=== PATIENT | male | born 1980 | race Caucasian/White ===

== ENCOUNTER 2020-12-09 15:26 | Emergency (ER) | payer MEDICAID, SELFPAY | END 2020-12-09 18:17 | disposition left against medical advice (07) | PROVIDERS: Emergency Provider Emergency Medicine | DX: N20.0 Calculus of kidney (principal) ==

== ENCOUNTER 2020-12-15 15:47 | Emergency (ER) | payer OTHER, MEDICAID, SELFPAY ==
--- NOTE | ~2020-12-15 | CT_ITS ---
EXAMINATION: CT LUMBAR SPINE WITHOUT CONTRAST CLINICAL INFORMATION: [facility] COMPARISON: Lumbar spine x-ray September 2016 TECHNIQUE: Axial images through the lumbar spine without contrast. Sagittal and coronal reconstructions on the technologist workstation were performed. This CT examination was performed using dose optimization techniques as appropriate, variously including the following: *Automated exposure control *Adjustment of mA and/or kV according to patient size (this includes techniques or standardized protocols for targeted exams where dose is matched to indication/reason for exam; i.e. extremities or head) *Use of iterative reconstruction technique DLP; 416 mGy-cm FINDINGS: The L1 vertebral body is not completely included in the [id number]. L1 vertebral body appears normal on topogram images. Bone alignment is normal. No fracture or dislocation is seen. There is degenerative disc disease at L4-L5 and L5-S1. The sacroiliac joints are normal-appearing. At L1-L2 there is no disc herniation protrusion or bulge. At L2-L3 there is no disc herniation/bulge. At L3-L4 there is mild diffuse disc bulge. No disc herniation is seen. Spinal canal, lateral recesses and neural foramen are patent. At L4-L5 there is right paracentral disc bulge. There is mild secondary spinal stenosis due to disc and short pedicles. At L5-S1 there is diffuse disc bulge. There is mild secondary spinal stenosis due to disc and, short pedicles and facet arthritis. There are bilateral renal stones. Paraspinal soft tissues are otherwise unremarkable. CT/CT lumbar spine wo con IMPRESSION: The L1 vertebral body is not completely included in the [id number]. No fracture or dislocation is seen. Mild disc bulge at L3-L4. Degenerative disease with disc bulge and mild secondary spinal stenosis at L4-L5 and L5-S1. Bilateral renal stones.
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
[2020-12-15 15:56] VITALS: BP 154/70; PULSE 96; RESP 18; TEMP 36.6; O2SAT 98; BMI 25.1
[2020-12-15] MEDS: Acetaminophen 325 MG TABLET 975 MG PO (16:50)
[2020-12-15] MEDS: HYDROcodone Bit/Acetam 5/325 TABLET 1 TAB PO (17:20)
== END 2020-12-15 17:25 | disposition home or self-care (01) ==
PROVIDERS: Emergency Provider Emergency Medicine
DX: S13.4XXA Sprain of ligaments of cervical spine, initial encounter (principal); S39.012A Strain of muscle, fascia and tendon of lower back, initial encounter; V89.2XXA Person injured in unspecified motor-vehicle accident, traffic, initial encounter; Y93.9 Activity, unspecified; Y92.410 Unspecified street and highway as the place of occurrence of the external cause; Y99.9 Unspecified external cause status
CPT/HCPCS: 70450; 72125; 72131; 99283; 99284

== ENCOUNTER 2024-07-17 14:29 | Outpatient (REF) | payer MEDICAID, SELFPAY ==
--- NOTE | ~2024-07-17 | XR_ITS ---
EXAMINATION: XR CHEST CLINICAL INFORMATION: cough, fever, neg covid and flu COMPARISON: July 31, 2015 TECHNIQUE: 2 views of the chest were obtained. FINDINGS: No consolidation pleural effusion or pneumothorax. No hyperinflation. Cardiomediastinal silhouette size is normal. Osseous structures are intact. XR/XR chest 2V IMPRESSION: No acute airspace disease. Electronically signed by: Rob Jo MD 07/17/2024 03:17 PM MARCELL
== END 2024-07-17 14:30 | disposition home or self-care (01) ==
LOC: HO.HHCX 14:29
PROVIDERS: Visit Provider Nurse Practitioner Family
DX: R50.9 Fever, unspecified (principal)
CPT/HCPCS: 71046

== ENCOUNTER → 2024-07-17 14:30 | Outpatient (BNV) | payer MEDICAID, SELFPAY | PROVIDERS: Visit Provider Radiology Diagnostic Radiology | DX: R05.9 Cough, unspecified (principal); R50.9 Fever, unspecified | CPT/HCPCS: 71046 ==

== ENCOUNTER 2024-07-24 16:33 | Outpatient (REF) | payer MEDICAID, SELFPAY ==
[2024-07-24 18:22] LABS: CT PCR NOT DETECTED (Not Detect.); NG PCR NOT DETECTED (Not Detect.)
--- OUTSIDE RECORDS SUMMARY | 2024-07-24 19:48 | XMS_ITS | Encounter Summary ---
Author Organization [employer] Address [address] [facility] [address]t [place] [address] Care Team Providers Care Specialty Development Consultant Name Role Phone Cindi Chiu NP Primary Care Provider [phone] Encounter Details Date Type Department Care Team (Late st Contact Info) Description 07/24/2024 Telephone [facility] MEDICINE [address] [place] [address] Cindi Chiu NP [address] [place] [address] Social History Tobacco Use Types Packs/Day Years Used Date Smoking Tobacco: Every Day Cigarettes Passive Smoke Exposure: Current Smokeless Tobacco: Current Sex and Gender Information Value Date Recorded Sex Assigned at Male 03/29/2022 10:15 AM EDT Legal Sex Male 10:15 AM EDT Gender Identity Male 03/29/2022 10:15 AM EDT Sexual Orientation Straight 03/29/2022 10 :15 AM EDT documented as of this encounter Miscellaneous Notes * Telephone Encounter - Gema Raza RN - 07/24/2024 2:14 PM EST T/C to pt to schedule televisit BP check next week. Female answered who agrees to ask pt to call [facility] to schedule. * Telephone Encounter - Gema Raza RN - 07/24/2024 2:13 PM EST ----- Message from Shan Quiroz MD sent at 07/24/2024 1:56 PM EST ----- Please call the patient for BP check next week documented in this encounter Plan of Treatment Not on file documented as of this encounter Visit Diagnoses Not on filedocumented in this encounter Care Teams Specialty Development Consultant Relationship Specialty Start Date End Date Cindi Chiu NP [address] [place] [id number] PCP - General Family Medicine 07/20/24 documented as of this encounter
--- OUTSIDE RECORDS SUMMARY | 2024-07-24 19:48 | XMS_ITS | Encounter Summary ---
Author Organization [employer] Address [address] [facility] [address] [place] [address] Care Team Providers Care Caustics Loader Name Role Phone Cindi Chiu ANSWERER Primary Care Provider [phone] Reason for Visit * Reason Onset Date Comments Medication Problem 07/23/2024 Encounter Details Date Type Department Care Team (Late st Contact Info) Description 07/23/2024 Telephone [facility] WALK-IN CENTER [address] [place] [address] Angie Bruno RN Medication Problem Social History Tobacco Use Types Packs/Day Years Used Date Smoking Tobacco: Never Assessed Sex and Gender Information Value Date Recorded Sex Assigned at Male 03/29/2022 10:15 AM EDT Legal Sex Male 10:15 AM EDT Gender Identity Male 03/29/2022 10:15 AM EDT Sexual Orientation Straight 03/29/2022 10 :15 AM EDT documented as of this encounter Miscellaneous Notes * Telephone Encounter - Angie Bruno RN - 07/23/2024 8:08 PM EST TC to pt at @[phone] for status check regarding Abtx Rx and report of N/V. Outgoing messageis : VM is not set up. Unable to leave message at this time. 07/23/24 4:42 PM Tomás Puente: Please review and advise, Thanks, TRI Adams RN to Cindi Chiu NP 07/20/24 3:54 PM Tomás Puente, you saw this patient in the walk on 07/17. He was prescribed Augmentin for left otitis media. He is on day 4 of 7. He just called reporting he is having nausea/ vomiting since beginning Abx.I did let him know that it can cause GI effects, but he is requesting a different antibiotic. TY! documented in this encounter Plan of Treatment Not on file documented as of this encounter Visit Diagnoses Not on filedocumented in this encounter Care Teams Caustics Loader Relationship Specialty Start Date End Date Cindi Chiu NP [address] [place] [id number] PCP - General Family Medicine 07/20/24 documented as of this encounter
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
--- OUTSIDE RECORDS SUMMARY | 2024-07-24 19:48 | XMS_ITS | Encounter Summary ---
Author Organization [employer] Address [address] [facility] 7t [place] [address] Care Team Providers Care Builder Operator Name Role Phone Cindi Chiu NP Primary Care Provider [phone] Reason for Visit * Reason Onset Date Comments Medication Question 07/20/2024 Encounter Details Date Type Department Care Team (Late st Contact Info) Description 07/20/2024 Telephone [facility] MEDICINE [address] [place] [address] Cindi Chiu NP [address] [place] [address] Medication Question Social History Tobacco Use Types Packs/Day Years Used Date Smoking Tobacco: Never Assessed Sex and Gender Information Value Date Recorded Sex Assigned at Male 03/29/2022 10:15 AM EDT Legal Sex Male 10:15 AM EDT Gender Identity Male 03/29/2022 10:15 AM EDT Sexual Orientation Straight 03/29/2022 10 :15 AM EDT documented as of this encounter Miscellaneous Notes * Telephone Encounter - Gladys Parker RN - 07/24/2024 1:41 PM EST TC x 2 placed to pt to see how he is doing. Pt reports he was able to finish the antibiotics. Pt states he was vomiting, but was able to finish antibiotics. Pt states he is feeling much better. Pt denies any pain in his ear and reports feeling better. Pt denies questions or concerns at this time. Message forwarded to PCP as an FYI. * Telephone Encounter - Yudy Patterson RN - 07/20/2024 3:48 PM EST Call returned to patient. Arslan reports that since taking Augmentin he has had nausea/ vomiting and abdominal discomfort. He is on day 4 of 7 day course. He is wondering if there is an alternative medication he can take. Advised patient this RN will send to ordering provider for review. Will return call to patient. Patient verbalizes understanding and agreement with plan of care at this time. * Telephone Encounter - Xander Ramirez - 07/20/2024 3:39 PM EST TC from pt stating that the med amoxicillin-clavulanate (Augmentin) 875-125 MG tablet Is too strongfor him and that it was making him throw up. Pt would like to see if its possible for him to get a Alternate medication. Contact pt at [phone] documented in this encounter Plan of Treatment Not on file documented as of this encounter Visit Diagnoses Not on filedocumented in this encounter Care Teams Builder Operator Relationship Specialty Start Date End Date Cindi Chiu NP [address] [place] [id number] PCP - General Family Medicine 07/20/24 documented as of this encounter
--- OUTSIDE RECORDS SUMMARY | 2024-07-24 19:48 | XMS_ITS | Encounter Summary ---
Author Organization [employer] Address [address] [facility] 7t [place] [address] Care Team Providers Care Greenhouse Specialist Name Role Phone Unavailable Primary Care Provider Unavailabl e Encounter Details Date Type Department Care Team (Late st Contact Info) Description 07/18/2024 Telephone [facility] WALK-IN CENTER [address] [place] [address] Cindi Chiu NP [address] [place] [address] Social History Tobacco Use Types Packs/Day Years Used Date Smoking Tobacco: Never Assessed Sex and Gender Information Value Date Recorded Sex Assigned at Male 03/29/2022 10:15 AM EDT Legal Sex Male 10:15 AM EDT Gender Identity Male 03/29/2022 10:15 AM EDT Sexual Orientation Straight 03/29/2022 10 :15 AM EDT documented as of this encounter Miscellaneous Notes * Telephone Encounter - Jerilyn Sepulveda RN - 07/18/2024 11:09 AM EST TC placed to pt regarding message below per Cindi Chiu DIRECTOR OF PARTNERSHIPS. Pt verbalized understanding. No questions expressed at time of call. Pt to F/U as needed. ----- Message from Cindi Chiu sent at 07/18/2024 10:52 AM EST ----- Pls let pt know chest x-ray negative for peumonia but to continue abx as prescribed for ear infection thank you documented in this encounter Plan of Treatment Not on file documented as of this encounter Visit Diagnoses Not on filedocumented in this encounter
--- OUTSIDE RECORDS SUMMARY | 2024-07-24 19:49 | XMS_ITS | Clinical Summary ---
Author Organization [employer] Address [address] [facility] [address] [place] [address] Care Team Providers Care Organ Tuner Electronic Name Role Phone Cindi Chiu BARBARA Primary Care Provider [phone] Allergies No known active allergies Medications albuterol 108 (90 Base) MCG/ACT inhalerIndication s:Moderate persistent asthma with acute exacerbation Inhale 2 puffs every 6 (six) hours if needed for wheezing. 18 g 11 07/17/2024 08/17/19 25 Active amoxicillin-clavu lanate (Augmentin) 875-125 MG tablet Take 1 tablet by mouth 2 times daily for 7 days. 14 tablet 07/17/2024 07/24/19 25 Active amLODIPine (Norvasc) 2.5 MG tablet Take 1 tablet (2.5 mg) by mouth Once per day. 30 tablet 11 07/24/2024 07/24/19 26 Active Blood Pressure kitIndications:Hy pertension, unspecified type Use once a day 1 kit 07/24/2024 Active Active Problems Problem Noted Date Diagnosed Date Hypertension 07/24/2024 Viral URI 07/17/2024 Assessment & Plan (07/17/2024 6:58 PM EST): Poct test neg for influenza, covid , strep Asthma flare, will image as pt does have fever and endorses sob Though respiratory exam reassuring to auscultation Fever 07/17/2024 Moderate persistent asthma with acute exacerbati on 07/17/2024 Assessment & Plan (07/17/2024 6:59 PM EST): Encouraged abstaining from tobacco Albuterol inhaler prescribed No audible wheeze Acute otitis media 07/17/2024 Assessment & Plan (07/17/2024 6:57 PM EST): Left ear, augmentin prescribed Note for work given until afebrile for 24 hours Continue abx until completion even if you feel better Encounters Date Type Department Care Team Description 07/24/2024 1:40 PM EST Office Visit [facility] [address] [place] [phone] Gabriella, MD Shan Penile rash (Primary Dx); Hypertension, unspecified type 07/24/2024 Telephone [facility] [address] [place] [phone] Cindi Chiu NP 07/24/[address] [address] Cindi Chiu NP Nurse Triage 07/23/2024 Telephone [facility] [address] [phone] Angie Bruno RN Medication Problem 07/20/[address] [address] Cindi Chiu NP Medication Question 07/18/2024 Telephone [facility] [address] [address] Cindi Chiu NP 07/17/2024 2:40 PM EST Office Visit [facility] [address] [address] Cindi Chiu NP Fever, unspecified fever cause (Primary Dx); Viral URI; Moderate persistent asthma with acute exacerbation; Acute suppurative otitis media of left ear without spontaneous rupture of tympanic membrane, recurrence not specified from Last 3 Months Social History Tobacco Use Types Packs/Day Years Used Date Smoking Tobacco: Every Day Cigarettes Passive Smoke Exposure: Current Smokeless Tobacco: Current Tobacco Cessation:Ready to Q uit: Not Asked; Counseling Given: Not Answered Sex and Gender Information Value Date Recorded Sex Assigned at Male 03/29/2022 10:15 AM EDT Legal Sex Male 10:15 AM EDT Gender Identity Male 03/29/2022 10:15 AM EDT Sexual Orientation Straight 03/29/2022 10 :15 AM EDT Last Filed Vital Signs Vital Sign Reading Time Taken Comments Blood Pressure 156/105 07/24/2024 1:59 PM EST Pulse 96 07/24/2024 1:31 PM EST Temperature 36.2 ??C (97.1 ??F) 07/24/2024 1:31 PM ES T Respiratory Rate 20 07/24/2024 1:31 PM EST Oxygen Saturation 98% 07/24/2024 1:31 PM EST Inhaled Oxygen Concentration - - Weight 77.7 kg (171 lb 4 oz) 07/24/2024 1:31 PM EST Height 170.2 cm (5' 7 ) 07/24/2024 1:31 PM EST Body Mass Index 26.82 07/24/2024 1:31 PM EST Plan of Treatment Health Maintenance Due Date Last Done Comments Depression Screening 1980 HIV Screening 1981 Lipid Panel 1981 SDOH Screening 1981 Alcohol/Substance Use Screening 1993 Family Planning (PISQ) 1996 Hepatitis C Screening 1999 DTaP/Tdap/Td Vaccines (1 - Tdap) 2000 Hepatitis B Vaccines (1 of 3 - 19+ 3-dose series) 2000 Pneumococcal Vaccine: Pediatrics (0 to 5 Years) and At-Risk Patients (6 to 49) Years) (1 of 2 - PCV) 2000 COVID-19 Vaccine ( - 2023-2 5 season) 2024 12/31/2021, 11/19/2020, 10/22/2020 Influenza Vaccine (#1) 2024 Tobacco Screening 07/24/2025 07/24/2024 Zoster Vaccines (1 of 2) 2031 RSV Patients and Patients Aged 60 years or older (1 - 1-dose 75+ series) 2056 HIB Vaccines Aged Out No longer eligi ble based on patient's age to complete this topic HPV Vaccines Aged Out No longer eligi ble based on patient's age to complete this topic Hepatitis A Vaccines Aged Out No long er eligible based on patient's age to complete this topic IPV Vaccines Aged Out No longer eligi ble based on patient's age to complete this topic Meningococcal Vaccine Aged Out No sonia jesus eligible based on patient's age to complete this topic RSV under 20 months Aged Out No longe r eligible based on patient's age to complete this topic Rotavirus Vaccines Aged Out No longer eligible based on patient's age to complete this topic Procedures Procedure Name Priority Date/Time Associated Diagnosis Comments CHLAMYDIA/N. GONORRHOEAE RNA, TMA, UROGENITAL Routine 07/24/2024 2:00 PM EST Penile rash XR CHEST 2 VIEWS Routine 07/17/2024 2:30 PM EST Fever, unspecified fever cause POCT INFLUENZA B (ID NOW RAPID MOLECULAR) Routine 07/17/2024 2:00 PM EST Viral URI POCT INFLUENZA A (ID NOW RAPID MOLECULAR) Routine 07/17/2024 2:00 PM EST Viral URI POCT RAPID STREP A Routine 07/17/2024 2: 00 PM EST Viral URI POCT RAPID COVID ANTIGEN Routine 07/17/2024 2:00 PM EST Viral URI from Last 3 Months Results * Chlamydia/N. Gonorrhoeae RNA, TMA, Urogenitial (07/24/2024 2:00 PM EST) Pathologist [facility] CT PCR NOT DETECTED Not Detect. [facility] Comment:A not detected test result does not exclude the possibilityof infection because test results can be affected byimproper specimen collection, concurrent antibiotic therapy,or the number of organisms in the specimen which may bebelow the sensitivity of the test. As with many diagnostictests, results from the Xpert CT/NG assay should beinterpreted in conjunction with other laboratory andclinical data available to the clinician.Xpert CT/NG performance has not been evaluated in patientsless than 14 years of age. The assay should not be used forthe evaluationof suspected sexual abuse or for other medico-legalindications. Additional testing is recommended in anycircumstance when false positive or false negative resultscould lead to adverse medical, social or psychologicalconsequences. NG PCR NOT DETECTED Not Detect. [facility] Comment:A not detected test result does not exclude the possibilityof infection because test results can be affected byimproper specimen collection, concurrent antibiotic therapy,or the number of organisms in the specimen which may bebelow the sensitivity of the test. As with many diagnostictests, results from the Xpert CT/NG assay should beinterpreted in conjunction with other laboratory andclinical data available to the clinician.Xpert CT/NG performance has not been evaluated in patientsless than 14 years of age. The assay should not be used forthe evaluationof suspected sexual abuse or for other medico-legalindications. Additional testing is recommended in anycircumstance when false positive or false negative resultscould lead to adverse medical, social or psychologicalconsequences. Swab (Vaginal Swab) 07/24/2024 2:00 PM EST 07/24/2024 4:33 PM EST Narrative [facility] - 07/24/2024 6:22 PM EST Urine us Shan Name MD LAB MICROBIOLOGY - GENERAL ORDER NILDA Final Result Performing Organization Address City/State/[facility] Co de Phone Number [facility] [address] [place] [phone] [phone] * XR Chest 2 Views (07/17/2024 2:30 PM EST) Anatomical Region Laterality Modality Chest Radiographic Mildred ging 07/17/2024 2:30 PM EST Narrative 07/17/2024 3:20 PM EST ?[facility] ?[address] ?[place] [address] ?XRay Report ? Signed ? Patient: James,Arslan ?MR#: [id number] ?? 77 ? : 1980 ?Acct:[id number] ? Age/Sex: 44 / M ?ADM Date: 02/18/25 ? Loc: HO.HHCX ? Attending Dr: Cindi Chiu TUG MASTER ? Ordering Physician: Cindi Chiu TUG MASTER ?? Date of Service: 07/17/24 ?? Procedure(s): XR chest 2V ?? Accession Number(s): [id number] ? cc: Cindi Chiu TUG MASTER ? EXAMINATION: ?? XR CHEST ? CLINICAL INFORMATION: ?? cough, fever, neg covid and flu ? COMPARISON: ?? July 31, 2015 ? TECHNIQUE: ?? 2 views of the chest were obtained. ? FINDINGS: ?? No consolidation pleural effusion or pneumothorax. No hyperinflation. ?? Cardiomediastinal silhouette size is normal. Osseous structures are ?? intact. ? XR/XR chest 2V ?? IMPRESSION: ?? No acute airspace disease. ? Electronically signed by: ??Rob Jo MD ??07/17/2024 03:17 PM ?? EST RP ? Dictated By: ?Rob Mclaughlin MD ? Signed By: ?<Electronically signed by Rob Solo MD in OV> ? 07/17/24 1517 ? DD/ 1430 ? TD/TT: 07/17/24 1443 ? Womens Volleyball Coach: ? Procedure Note Donodalisdayoter, Image - 07/17/2024 [place] [address] XRay Report Signed Patient: Tc Ramirez#: [id number] 78 : 1980Acct:[id number] Age/Sex: 44 / MADM Date: 07/17/24 Loc: HO.HHCX Attending Dr: Cindi Chiu TUG MASTER Ordering Physician: Cindi Chiu NP Date of Service: 07/17/24 Procedure(s): XR chest 2V Accession Number(s): [id number] cc: Cindi Chiu TUG MASTER EXAMINATION: XR CHEST CLINICAL INFORMATION: cough, fever, neg covid and flu COMPARISON: July 31, 2015 TECHNIQUE: 2 views of the chest were obtained. FINDINGS: No consolidation pleural effusion or pneumothorax. No hyperinflation. Cardiomediastinal silhouette size is normal. Osseous structures are intact. XR/XR chest 2V IMPRESSION: No acute airspace disease. Electronically signed by: Rob Jo MD 07/17/2024 03:17 PM EST Dictated By: Rob Mclaughlin MD Signed By: <Electronically signed by Rob Solo MDin OV> 07/17/24 1517 DD/ 1430 TD/TT: 07/17/24 1443 Womens Volleyball Coach: Cindi Chiu TUG MASTER IMG XR PROCEDURES Edited Result - Final * Influenza B (ID NOW Rapid Molecular) (07/17/2024 2:00 PM EST) [facility] Influenza B Negative Negative, Indeterminate [facility] Swab 07/17/2024 2:00 PM EST Cindi Chiu TUG MASTER POINT OF CARE TEST ENTER/EDIT OR DERABLES Final Result Performing Organization Address [facility]/ZIP Co de Phone Number [facility] [address] [place] [phone] * Influenza A (ID NOW Rapid Molecular) (07/17/2024 2:00 PM EST) [facility] Influenza A Negative Negative, Indeterminate [facility] Swab 07/17/2024 2:00 PM EST Cindi Chiu TUG MASTER POINT OF CARE TEST ENTER/EDIT OR DERABLES Final Result Performing Organization Address [facility] Co de Phone Number [facility] [address] [place] [phone] * POCT Rapid COVID Ag (07/17/2024 2:00 PM EST) [facility] Rapid COVID Ag Negative [facility] Swab 07/17/2024 2:00 PM EST Cindi Chiu TUG MASTER POINT OF CARE TEST ENTER/EDIT OR DERABLES Final Result Performing Organization Address [facility] Co de Phone Number [facility] [address] [place] [phone] * POCT rapid strep A manually resulted (07/17/2024 2:00 PM EST) [facility] Rapid Strep A Screen Negative Negative, None Detected [facility] Swab 07/17/2024 2:00 PM EST us Cindi Chiu NP POINT OF CARE TEST ENTER/EDIT OR DERABLES Final Result [facility] [address] [place] [phone] from Last 3 Months Insurance [employer] Care Teams Organ Tuner Electronic Relationship Specialty Start Date End Date Cindi Chiu NP [address] [place] [phone] PCP - General Family Medicine 07/20/24
--- OUTSIDE RECORDS SUMMARY | 2024-07-24 19:49 | XMS_ITS | Encounter Summary ---
Author Organization [employer] Address [address] [facility] [address] [place] [address] Care Team Providers Care Power System Operator Name Role Phone Unavailable Primary Care Provider Unavailabl e Reason for Visit * Reason Comments Headache Nasal Congestion Sore Throat Fever Cough Encounter Details Date Type Department Care Team (Late st Contact Info) Description 07/17/2024 2:40 PM EST Office Visit [facility] [address] [place] [address] Cindi Chiu NP [address] [place] [address] Fever, unspecified fever cause (Primary Dx); Viral URI; Moderate persistent asthma with acute exacerbation; Acute suppurative otitis media of left ear without spontaneous rupture of tympanic membrane, recurrence not specified Social History Tobacco Use Types Packs/Day Years Used Date Smoking Tobacco: Never Assessed Sex and Gender Information Value Date Recorded Sex Assigned at Male 03/29/2022 10:15 AM EDT Legal Sex Male 10:15 AM EDT Gender Identity Male 03/29/2022 10:15 AM EDT Sexual Orientation Straight 03/29/2022 10 :15 AM EDT documented as of this encounter Last Filed Vital Signs Vital Sign Reading Time Taken Comments Blood Pressure 157/109 07/17/2024 1:45 PM EST Pulse 85 07/17/2024 1:45 PM EST Temperature 36.4 ??C (97.5 ??F) 07/17/2024 1:45 PM ES T Respiratory Rate 18 07/17/2024 1:45 PM EST Oxygen Saturation 98% 07/17/2024 1:45 PM EST Inhaled Oxygen Concentration - - Weight 75.3 kg (166 lb) 07/17/2024 1:45 PM EST Height - - Body Mass Index - - documented in this encounter Progress Notes * Cindi Chiu NP - 07/17/2024 2:40 PM EST Subjective: Asrlan Ramirez is a 44 y.o. male who presents to the office for a sick visit. HPI Was out in the cold weather on Tuesday At night cough and fevers, and night sweats, tmax 101 Feels sob, left ear pain, sore throat, and chest pain with breathing Smokes and has asthma, lungs hurt edwardo with inspiration Non productive cough, out of inhaler Exhausted No one sick at home Patient Active Problem List Diagnosis Viral URI Fever Moderate persistent asthma with acute exacerbation Acute otitis media Review of Systems Constitutional: Positive for chills and fever. HENT: Positive for congestion, ear pain, sinus pain, sore throat and trouble swallowing. Respiratory: Positive for cough, chest tightness, shortness of breath and wheezing. Cardiovascular: Negative for chest pain. Skin: Negative for color change. Hematological: Positive for adenopathy. Psychiatric/Behavioral: Negative for agitation. No Known Allergies Objective: Visit Vitals BP (!) 157/109 (BP Location: Left arm, Patient Position: Sitting, BP Cuff Size: Adult) Pulse 85 Temp 97.5 ??F (36.4 ??C) (Temporal) Resp 18 Wt 166 lb (75.3 kg) SpO2 98% Physical Exam Constitutional: Appearance: Normal appearance. HENT: Head: Normocephalic. Left Ear: A middle ear effusion is present. Tympanic membrane is injected, erythematous and bulging. Cardiovascular: Rate and Rhythm: Regular rhythm. Heart sounds: Normal heart sounds. Pulmonary: Effort: No tachypnea. Breath sounds: Normal breath sounds. No decreased air movement or transmitted upper airway sounds. No decreased breath sounds. Musculoskeletal: Cervical back: Neck supple. Lymphadenopathy: Cervical: Cervical adenopathy present. Neurological: Mental Status: He is alert. Poct for covid, flu , strep neg Assessment/Plan: Problem List Items Addressed This Visit Viral URI Current Assessment & Plan Poct test neg for influenza, covid , strep Asthma flare, will image as pt does have fever and endorses sob Though respiratory exam reassuring to auscultation Relevant Orders POCT Rapid COVID Ag (Completed) POCT rapid strep A manually resulted (Completed) Influenza A (ID NOW Rapid Molecular) (Completed) Influenza B (ID NOW Rapid Molecular) (Completed) Fever - Primary Relevant Orders XR Chest 2 Views (Completed) Moderate persistent asthma with acute exacerbation Current Assessment & Plan Encouraged abstaining from tobacco Albuterol inhaler prescribed No audible wheeze Relevant Medications albuterol 108 (90 Base) MCG/ACT inhaler Acute otitis media Current Assessment & Plan Left ear, augmentin prescribed Note for work given until afebrile for 24 hours Continue abx until completion even if you feel better Current Outpatient Medications Medication Sig Dispense Refill albuterol 108 (90 Base) MCG/ACT inhaler Inhale 2 puffs every 6 (six) hours if needed for wheezing. 18 g 11 amoxicillin-clavulanate (Augmentin) 875-125 MG tablet Take 1 tablet by mouth 2 times daily for 7 days. 14 tablet 0 No current facility-administered medications for this visit. documented in this encounter Miscellaneous Notes * Assessment & Plan Note - Cindi Chiu NP - 07/17/2024 6:59 PM ESTAssociated Problem(s): Moderate persistent asthma with acute exacerbation Encouraged abstaining from tobacco Albuterol inhaler prescribed No audible wheeze * Assessment & Plan Note - Cindi Chiu NP - 07/17/2024 6:58 PM ESTAssociated Problem(s): Viral URI Poct test neg for influenza, covid , strep Asthma flare, will image as pt does have fever and endorses sob Though respiratory exam reassuring to auscultation * Assessment & Plan Note - Cindi Chiu NP - 07/17/2024 6:57 PM ESTAssociated Problem(s): Acute otitis media Left ear, augmentin prescribed Note for work given until afebrile for 24 hours Continue abx until completion even if you feel better * Result Encounter Note - Cindi Chiu NP - 07/17/2024 2:40 PM EST Pls let pt know chest x-ray negative for [place] but to continue abx as prescribed for ear infection thank you documented in this encounter Plan of Treatment Not on file documented as of this encounter Procedures Procedure Name Priority Date/Time Associated Diagnosis Comments XR CHEST 2 VIEWS Routine 07/17/2024 2:30 PM EST Fever, unspecified fever cause POCT INFLUENZA B (ID NOW RAPID MOLECULAR) Routine 07/17/2024 2:00 PM EST Viral URI POCT INFLUENZA A (ID NOW RAPID MOLECULAR) Routine 07/17/2024 2:00 PM EST Viral URI POCT RAPID COVID ANTIGEN Routine 07/17/2024 2:00 PM EST Viral URI POCT RAPID STREP A Routine 07/17/2024 2: 00 PM EST Viral URI documented in this encounter Results * XR Chest 2 Views (07/17/2024 2:30 PM EST) Anatomical Region Laterality Modality Chest Radiographic Mildred ging 07/17/2024 2:30 PM EST Narrative 07/17/2024 3:20 PM EST ?[facility] ?[address] ?[place] [address] ?XRay Report ? Signed ? Patient: James,Arslan ?MR#: [id number] ?? 78 ? : 1980 ?Acct:[id number] ? Age/Sex: 44 / M ?ADM Date: 02/18/25 ? Loc: HO.HHCX ? Attending Dr: Cindi Chiu PARKING ANALYST ? Ordering Physician: Cindi Chiu NP ?? Date of Service: 07/17/24 ?? Procedure(s): XR chest 2V ?? Accession Number(s): [id number] ? cc: Cindi Chiu NP ? EXAMINATION: ?? XR CHEST ? CLINICAL [...] DD/ 1430 ? TD/TT: 07/17/24 1443 ? National Recruiter: ? Procedure Note Donotjenaeinterpreter, Image - 07/17/2024 [place] [address] XRay Report Signed Patient: Tc Ramirez#: [id number] 78 : 1980Acct:[id number] Age/Sex: 44 / MADM Date: 07/17/24 Loc: HO.HHCX Attending Dr: Cindi Chiu PARKING ANALYST Ordering Physician: Cindi Chiu PARKING ANALYST Date of Service: 07/17/24 Procedure(s): XR chest 2V Accession Number(s): [id number] cc: Cindi Chiu PARKING ANALYST EXAMINATION: XR CHEST CLINICAL INFORMATION: cough, fever, [...] Mclaughlin MD Signed By: <Electronically signed by Shonda Fuller OV> 07/17/24 1517 DD/ 1430 TD/TT: 07/17/24 1443 National Recruiter: Cindi Chiu PARKING ANALYST IMG XR PROCEDURES Edited Result - Final * Influenza B (ID NOW Rapid Molecular) (07/17/2024 2:00 PM EST) Pathologist [facility] Influenza B Negative Negative, Indeterminate [facility] Swab 07/17/2024 2:00 PM EST Cindi Chiu NP POINT OF CARE TEST ENTER/EDIT OR DERABLES Final Result Performing Organization Address [facility] Co de Phone Number [facility] [address] [place] [phone] * Influenza A (ID NOW Rapid Molecular) (07/17/2024 2:00 PM EST) [facility] Influenza A Negative Negative, Indeterminate [facility] Swab 07/17/2024 2:00 PM EST Result [facility] Cindi Chiu PARKING ANALYST POINT OF CARE TEST ENTER/EDIT OR DERABLES Final Result Performing Organization Address [facility] Co de Phone Number [facility] [address] [place] [phone] * POCT rapid strep A manually resulted (07/17/2024 2:00 PM EST) [facility] Rapid Strep A Screen Negative Negative, None Detected [facility] Swab 07/17/2024 2:00 PM EST Cindi Chiu PARKING ANALYST POINT OF CARE TEST ENTER/EDIT OR DERABLES Final Result Performing Organization Address [facility] Co de Phone Number [facility] [address] [place] [phone] * POCT Rapid COVID Ag (07/17/2024 2:00 PM EST) Rapid COVID Ag Negative [facility] Swab 07/17/2024 2:00 PM EST Cindi Chiu NP POINT OF CARE TEST ENTER/EDIT OR DERABLES Final Result [facility] [address] [place], [place] [phone] documented in this encounter Visit Diagnoses Diagnosis Fever, unspecified fever cause- Primary Viral URI Acute upper respiratory infections of unspecified site Moderate persistent asthma with acute exacerbation Acute suppurative otitis media of left ear without spontaneous rupture of tympanic membrane, recurrence not specified documented in this encounter
--- OUTSIDE RECORDS SUMMARY | 2024-07-24 19:49 | XMS_ITS | Encounter Summary ---
Author Organization [employer] Address [address] [facility] [address] [place] [address] Care Team Providers Care Communications Tech Name Role Phone DomingoCindi cerna BARBARA Primary Care Provider [phone] Reason for Visit * Reason Comments Penis Injury Encounter Details Date Type Department Care Team (Late st Contact Info) Description 07/24/2024 1:40 PM EST Office Visit [facility] [address] [place] [address] Name, MD Shan [address] [place] [address] Penile rash (Primary Dx); Hypertension, unspecified type Social History Tobacco Use Types Packs/Day Years [...] Mass Index 26.82 07/24/2024 1:31 PM EST documented in this encounter Progress Notes * Shan Quiroz MD - 07/24/2024 1:40 PM EST Subjective Patient ID: Arslan Ramirez is a 44 y.o. male who presents for Penis Injury. Patient comes complaining of 3 days with a penile rash. The problem started after he had prolonged vigorous intercourse with his partner. The patient is in a monogamous relationship. He does not haveany urethral discharge. No history of STDs. His BP is also elevated today. He describes numerous episodes of elevated blood pressure. He does not have any chest pains or shortness of breath. He is not on any medication for hypertension. Review of Systems Constitutional: Negative for chills, fatigue and fever. HENT: Negative for sore throat. Respiratory: Negative for cough, chest tightness and shortness of breath. Cardiovascular: Negative for chest pain, palpitations and leg swelling. Gastrointestinal: Negative for abdominal pain and blood in stool. Genitourinary: Negative for dysuria and penile pain. See HPI Visit Vitals BP (!) 180/100 (BP Location: Left arm, Patient Position: Sitting, BP Cuff Size: Adult) Pulse 96 Temp 97.1 ??F (36.2 ??C) (Oral) Resp 20 Ht 5' 7 (1.702 m) Wt 171 lb 4 oz (77.7 kg) SpO2 98% BMI 26.82 kg/m?? Smoking Status Every Day BSA 1.92 m?? Objective Physical Exam Constitutional: Appearance: Normal appearance. Cardiovascular: Rate and Rhythm: Normal rate and regular rhythm. Heart sounds: No murmur heard. Pulmonary: Effort: Pulmonary effort is normal. No respiratory distress. Breath sounds: No wheezing, rhonchi or rales. Abdominal: Palpations: Abdomen is soft. Tenderness: There is no abdominal tenderness. Genitourinary: Comments: The patient has superficial Penis excoriations on the glans Musculoskeletal: Right lower leg: No edema. Left lower leg: No edema. Neurological: Mental Status: He is alert. Assessment/Plan Diagnoses and all orders for this visit: Penile rash Comments: I suspect the rash the patient complains of is actually excoriations secondary to mechanical friction. I will check for herpes, GC and chlamydia to make sure. Further recommendation based on the results. Orders: - Herpes Simplex Virus Culture with Reflex Typing; Future - Chlamydia/N. Gonorrhoeae RNA, TMA, Urogenitial Hypertension, unspecified type Comments: Patient was hypertensive twice today. Blood pressure has been elevated also when he checks at his local pharmacy and on his previous visit. I recommended treatment with 2.5 mg of amlodipine daily. Hewas prescribed a BP monitor for home use. Follow-up with team nurse next week for BP recheck. Orders: - Blood Pressure kit; Use once a day Other orders - amLODIPine (Norvasc) 2.5 MG tablet; Take 1 tablet (2.5 mg) by mouth Once per day. documented in this encounter Plan of Treatment Scheduled Orders Name Type Priority Associated Diagnoses Orde r Schedule Herpes Simplex Virus Culture with Reflex Typing Microbiology Routine Penile rash Expected: 07/24/2024, Expires: 07/24/2025 documented as of this encounter Procedures Procedure Name Priority Date/Time Associated Diagnosis Comments CHLAMYDIA/N. GONORRHOEAE RNA, TMA, UROGENITAL Routine 07/24/2024 2:00 PM EST Penile rash documented in this encounter Results * Chlamydia/N. Gonorrhoeae RNA, TMA, Urogenitial (07/24/2024 2:00 PM EST) CT PCR NOT DETECTED Not Detect. [facility] Comment:A not detected test result [...] psychologicalconsequences. NG PCR NOT DETECTED Not Detect. [facility] Comment:A not detected test result does [...] PM EST 07/24/2024 4:33 PM EST Narrative [facility] - 07/24/2024 6:22 PM EST Urine us Shan Name LAB MICROBIOLOGY - GENERAL ORDER NILDA Final Result [facility] [address] [place] [address] [phone] documented in this encounter Visit Diagnoses Diagnosis Penile rash- Primary Hypertension, unspecified type documented in this encounter Care Teams Communications Tech Relationship Specialty Start Date End Date Cindi Chiu NP [address] [place] [id number] PCP - General Family Medicine 07/20/24 documented as of this encounter
== END 2024-07-24 16:34 | disposition home or self-care (01) ==
LOC: HO.HHCLNP 16:33
PROVIDERS: Visit Provider Internal Medicine Geriatric Medicine
DX: Z11.3 Encounter for screening for infections with a predominantly sexual mode of transmission (principal); R21 Rash and other nonspecific skin eruption
CPT/HCPCS: 36415; 87255; 87491; 87591

== ENCOUNTER 2024-10-03 14:13 | Emergency (ER) | payer MEDICAID, SELFPAY ==
--- NOTE | ~2024-10-03 | CT_ITS ---
CLINICAL HISTORY: R mastoid TTP CT temporal bone without contrast Comparison: None Findings: No exterrnal auditory canal pathology. Tympanic membranes intact. Intact middle ear ossicles. Unremarkable cochlea and semicircular canals. Normal course of 7th nerves. Mastoid air cells are clear. Temporomandibular joints are intact. Orbits normal. Prominent opacification throughout the paranasal sinuses, pronounced in the left maxillary sinus with aerated secretions in the bilateral maxillary sinuses concerning for acute sinusitis. No foreign bodies. IMPRESSION: Unremarkable temporal bone CT. Acute sinusitis This document has been electronically signed by: Armando Trujillo MD on 10/03/2024 19:53:25
[2024-10-03 14:27] VITALS: BP 165/103; PULSE 82; RESP 18; TEMP 36.8; O2SAT 98; BMI 24.6
--- NOTE | 2024-10-03 14:27 | ED_ITS ---
HPI - Ear Problem General Chief complaint: Dental/Oral Stated complaint: Ear Pain Time Seen by Provider: 10/03/24 15:48 Related Data Previous Rx's ?Medication ?Instructions ?Recorded cyclobenzaprine 10 mg tablet 10 mg PO TID PRN muscle spasm #12 12/15/20 tabs hydrocodone 5 mg-acetaminophen 325 1 tab PO Q8H PRN pain #6 tabs 12/15/20 mg tablet ibuprofen 600 mg tablet 600 mg PO Q8H PRN pain #15 tabs 12/15/20 lidocaine 5 % topical patch 1 patch topical DAILY #15 ea 12/15/20 (Lidoderm) Allergies Allergy/AdvReac Type Severity Reaction Status Date / Time Codeine Allergy Unknown Rash Uncoded 10/03/24 14:28 [facility] Social History Social History (System 12/30/20 @ 13:11 by Natali Lopez) Alcohol intake: current Alcohol intake frequency: holidays/special occasions only Smoked in Last 30 Days: Yes Use of substances other than those prescribed or required for medical reasons: Yes Substance Use Type: Marijuana Advance Directives: No Advance Directives Information Provided: Yes Physical Exam 2 Vital Signs: Vital Signs: Last Vital Signs Temp 98.7 F 10/03/24 19:44 Pulse 80 10/03/24 19:44 Resp 18 10/03/24 19:44 BP 146/79 H 10/03/24 19:44 Pulse Ox 98 10/03/24 19:44 O2 Del Method Room Air 10/03/24 19:44 O2 Flow Rate 15 10/03/24 16:40 BMI result Body Mass Index 24.6 Const: Other: EXAM: Gen: Alert, awake, well appearing, well hydrated. anxious appearing no distress Head: Atraumatic Eyes: Anicteric, Normal conjunctiva. ENT: Moist mucosa, no pallor. well visualize tympanic membranes bilaterally with no bulging or erythema. Canals clear without vesicles erythema or tenderness with speculum exam. External structures of the ear normal without tenderness or erythema. Mild tenderness elicited over palpation of the right mastoid but no overlying skin changes or bogginess. Neuro: Alert. Gross movement of all extremities intact. Vital signs: See flowsheet Course Course Course Narrative: This is a Rapid Medical Exam performed in triage by Kaley Peña PA-C. Full HPI, ROS and PE to be performed by primary ED provider. 44 yo M w/PMHx recent dental extraction finish course of amoxicillin/chlorhexidine without relief presenting to the ED sent in from dentist for potential IV abx. Reports continued bilateral ear pain and facial/jaw pain. Reports some drainage from right ear. PE: Talking in complete sentences. Right TM cloudy with small amount of fluid. + bilateral mastoid tenderness appreciated. Poor dentition Plan: labs, will need imaging Medications Administered Discontinued Medications Generic Name Dose Route Start Last Admin Trade Name Monika PRN Reason Stop Dose Admin Acetaminophen 650 mg 10/03/24 14:32 10/03/24 14:34 Acetaminophen 325 Mg Tablet PO 10/03/24 14:33 650 mg ONCE ONE Administration Ceftriaxone Sodium 2 gm 10/03/24 17:40 10/03/24 18:13 Ceftriaxone Sodium 2 Gm Vial IVPUSH 10/03/24 17:41 2 gm ONCE ONE Administration Oxycodone HCl 5 mg 10/03/24 17:43 10/03/24 18:13 Oxycodone Hcl Immed Release 5 Mg Tablet PO 10/03/24 17:44 5 mg ONCE ONE Administration Medical Decision Making Medical Decision Making [facility] Narrative: 44-year-old male sent for evaluation by dental team. Patient has poor dentition recently was on Augmentin. He now was complaining of ear pain. I see no evidence of otitis media, otitis externa. He did have tenderness over the right mastoid only no trauma to the area no bruising. No overlying signs of skin change. For this reason we got a CT which does not show opacification of the right mastoid nor any other acute ENT issue. I do not think this patient needs any additional imaging or treatment. Refer back to dental chronic otalgia of unclear etiology at this time can follow up with the ENT I will provide him follow up contact Lab Data [facility] Lab Attestation statement: I reviewed the patient's lab results. 10/03/24 14:41 10/03/24 14:41 Labs: Lab Results 10/03/24 Range/Units 14:41 WBC 9.7 (4.8-10.8) X10*3/uL RBC 5.63 (4.60-5.80) X10*6/uL Hgb 16.6 (14.0-18.0) g/dl Hct 49.9 (42.0-52.0) % MCV 88.6 (80.0-98.0) fL MCH 29.5 (27.0-33.0) pg MCHC 33.3 (31.0-36.0) g/dl RDW 13.5 (11.0-16.0) % Plt Count 297 (160-400) X10*3/uL MPV 9.4 (9.4-12.4) fL Immature Gran % (Auto) 0.3 (0.0-0.4) % Neut % (Auto) 64.4 (45-73) % Lymph % (Auto) 24.0 (20-40) % [place] % (Auto) 8.1 (2-11) % Eos % (Auto) 2.8 (0-4) % Baso % (Auto) 0.4 (0-2) % Lymph # (Auto) 2.3 (1.2-4.9) X10*3/uL [place] # (Auto) 0.8 (0.1-1.2) X10*3/uL Eos # (Auto) 0.3 (0.0-0.4) X10*3/uL Baso # (Auto) 0.0 (0.0-0.2) X10*3/uL Abs Immat Gran (auto) 0.03 (0.00-0.03) X10*3/uL Absolute Neuts (auto) 6.3 (2.0-8.3) x10*3/uL Absolute Nucleated RBC 0.000 (0.0-0.012) X10*3/uL Nucleated RBC % (auto) 0.0 (0.0-0.2) /100WBC ESR 2 (0-15) MM/HR Sodium 144 (135-145) mmol/L Potassium 4.2 (3.3-5.1) mmol/L Chloride 101 (96-108) mmol/L Carbon Dioxide 31 H (22-29) mmol/L Anion Gap 16 (12-20) BUN 11 (9-16) mg/dL Creatinine 0.82 (0.5-1.4) mg/dL Estim Creat Clear Calc 108.5 Estimated GFR > 60 Random Glucose 70 (60-115) mg/dL Calcium 10.0 (8.4-10.2) mg/dL C-Reactive Protein 0.50 (< or = 0.50) mg/dL Influenza Type A (PCR) NEGATIVE (Negative) Influenza Type B (PCR) NEGATIVE (Negative) RSV RNA Qual (PCR) NEGATIVE (Negative) SARS-CoV-2 RNA (RT-PCR) NEGATIVE (Negative) S. pyogenes GrpA ADONIS Negative (Negative) Independent Interpretation I performed an independent interpretation of an: CT Scan ( preliminary interpretation shows no mastoid opacification) Radiology Impression Discussion of test interpretation with radiology: I have reviewed the radiologist's reading. Discharge Plan Discharge Clinical Impression: Toothache Patient Disposition: Home, Self-Care Instructions: Earache (ED), Toothache (ED) Additional Instructions: DISCHARGE DIAGNOSES: ear pain, tenderness over the mastoid structure behind the right ear No signs of infection of the mastoid or ear on CT or examination HISTORY OF PRESENTATION: dental pain EMERGENCY DEPARTMENT COURSE,TESTS, TREATMENTS: While in the ED today you had a CT scan that it that did not show any acute abnormalities DISCHARGE MEDICATIONS: [We have made no changes to your regular medication regimen] FOLLOW-UP: Call your primary or general physician soon as possible to discuss your symptoms, your ED visit and to discuss follow up plans follow up with your dentist and call the ENT office as shown on this discharge paperwork INSTRUCTIONS & RETURN PRECAUTIONS: If any symptoms change first call your primary physician, if it is after-hours your primary doctors office should have a provider manager transportation you can speak with. If the symptoms are severe or very concerning to you then call 911 or return to the ED. Salvatore Azul MD Emergency Physician [facility] Prescriptions: No Action cyclobenzaprine 10 mg tablet 10 mg PO TID PRN (Reason: muscle spasm) Qty: 12 0RF ibuprofen 600 mg tablet 600 mg PO Q8H PRN (Reason: pain) Qty: 15 0RF lidocaine [Lidoderm] 5 % adhesive patch,medicated 1 patch topical DAILY Qty: 15 0RF Rx Instructions: leave on most painful area for up to 12 hrs hydrocodone-acetaminophen 5-325 mg tablet 1 tab PO Q8H PRN (Reason: pain) Qty: 6 0RF Rx Instructions: partial fill ok Referrals: Physician,Unknown J [Primary Care Provider] - ( call [facility] the number is here if you continue to have severe pain in your ear or tenderness over the bony [phone] Interventions: ED Discharge Assessment Last Done: 10/03/24 19:44 Discharge Date/Time: 10/03/24 19:45 Print Language: Frisian
[2024-10-03] MEDS: Acetaminophen 325 MG TABLET 650 MG PO (14:34)
[2024-10-03 14:48] LABS: MANUAL DIFF FLAG NO
[2024-10-03 14:53] LABS: Basophils Percent Auto 0.4 % (0-2); Eosinophils Absolute Auto 0.3 X10*3/uL (0.0-0.4); Eosinophils Percent Auto 2.8 % (0-4); Hematocrit 49.9 % (42.0-52.0); Hemoglobin 16.6 g/dl (14.0-18.0); Imm Gran Abs Auto 0.03 X10*3/uL (0.00-0.03); Imm Gran Pct Auto 0.3 % (0.0-0.4); Lymphocytes Absolute Auto 2.3 X10*3/uL (1.2-4.9); Mean Corpuscular HGB Conc 33.3 g/dl (31.0-36.0); Mean Corpuscular Hemoglobin 29.5 pg (27.0-33.0); Mean Corpuscular Volume 88.6 fL (80.0-98.0); Mean Platelet Volume 9.4 fL (9.4-12.4); Monocytes Absolute Auto 0.8 X10*3/uL (0.1-1.2); Monocytes Percent Auto 8.1 % (2-11); Neutrophils Absolute Auto 6.3 x10*3/uL (2.0-8.3); Neutrophils Percent Auto 64.4 % (45-73); Platelet Count 297 X10*3/uL (160-400); Red Blood Count 5.63 X10*6/uL (4.60-5.80); Red Cell Distribution Width 13.5 % (11.0-16.0); White Blood Count 9.7 X10*3/uL (4.8-10.8)
[2024-10-03 14:58] LABS: IDNOW Serial# 55D5AD1C; Strep A Nucleic Acid Negative (Negative)
[2024-10-03 15:01] LABS: Anion Gap 16 (12-20); Blood Urea Nitrogen 11 mg/dL (9-16); Carbon Dioxide 31 mmol/L (22-29); Chloride 101 mmol/L (96-108); Creatinine Clr Calc Pharmacy 108.5; Estimated Glomerular Filt Rate > 60; Glucose Random 70 mg/dL (60-115); Potassium 4.2 mmol/L (3.3-5.1); Sodium 144 mmol/L (135-145)
[2024-10-03 15:26] LABS: Influenza A PCR NEGATIVE (Negative); Influenza B PCR NEGATIVE (Negative); Resp Syncy Virus RNA Qual PCR NEGATIVE (Negative); SARS COV2 PCR INHOUSE NEGATIVE (Negative)
[2024-10-03 15:32] LABS: Erythrocyte Sedimentation Rate 2 MM/HR (0-15)
[2024-10-03 16:40] VITALS: BP 97/56; PULSE 99; RESP 27; TEMP 36.3; O2SAT 93
--- NOTE | 2024-10-03 17:50 | PC.NURSE ---
last set of vitals wrong person, put in by solar thermal technician.
[2024-10-03 18:00] VITALS: BP 144/89; PULSE 60; RESP 16; TEMP 36.8; O2SAT 97
[2024-10-03] MEDS: oxyCODONE HCl Immed Release 5 MG TABLET PO (18:13)
[2024-10-03] MEDS: cefTRIAXone sodium 2 GM VIAL IVPUSH (18:13)
[2024-10-03 19:44] VITALS: BP 146/79; PULSE 80; RESP 18; TEMP 37.1; O2SAT 98
== END 2024-10-03 19:45 | disposition home or self-care (01) ==
PROVIDERS: Physician Assistant; Emergency Provider Emergency Medicine
DX: K08.89 Other specified disorders of teeth and supporting structures (principal); H92.03 Otalgia, bilateral; J01.90 Acute sinusitis, unspecified; Z03.818 Encounter for observation for suspected exposure to other biological agents ruled out
CPT/HCPCS: 0241U; 70481; 80048; 85025; 85652; 86140; 87651; 99284; J0696

== ENCOUNTER → 2024-10-03 17:40 | Outpatient (BNV) | payer MEDICAID, SELFPAY | PROVIDERS: Emergency Provider Emergency Medicine; Visit Provider Radiology Diagnostic Radiology | DX: H92.01 Otalgia, right ear (principal) | CPT/HCPCS: 70481 ==